=== PATIENT | female | born 1940 ===

== ENCOUNTER 2019-01-13 19:26 | Inpatient (IN) | payer OTHER ==
[~2019-01-13] VITALS: Ht 157.5 cm; Wt 61.2 kg
[~2019-01-13 19:26] MED LIST: ASPIRIN EC81 MG; EVISTA60 MG; MONOPRIL; NORVASC5 MG
[2019-01-13] MEDS ORDERED: DYAZIDE 37.5-21 EACH (19:42)
[2019-01-13] MEDS ORDERED: LIPITOR40 MG (19:43)
[2019-01-13] MEDS ORDERED: ATENOLOL100 MG (19:43)
[2019-01-13] MEDS ORDERED: CLARITIN10 M1 (19:43)
[2019-01-13] MEDS ORDERED: PROBIOTIC1 EAC2 (19:44)
[2019-01-15] MEDS ORDERED: FOSINOPRIL SODI40 MG (13:49)
[2019-01-21] MEDS ORDERED: CLOPIDOGREL BIS75 MG PO (10:18)
[2019-01-21] MEDS ORDERED: AMLODIPINE BESYL5 MG PO (10:18)
[2019-01-21] MEDS ORDERED: NAMENDA5 MG PO (10:19)
== END 2019-01-21 14:29 | disposition home or self-care (01) | DRG 682 ==
LOC: ER 19:26 → MEDJ 01-14 10:54 → SEC-K 01-14 10:54 → MEDJ 01-14 18:39 → SEC-K 01-14 19:54 → MEDJ 01-14 19:55
PROVIDERS: ADMIT Internal Medicine
PROC: BT4JZZZ Ultrasonography of Kidneys and Bladder (ICD-10-PCS; principal; 2019-01-14)
PROC: BH4CZZZ Ultrasonography of Head and Neck (ICD-10-PCS; 2019-01-17)
PROC: B345ZZZ Ultrasonography of Bilateral Common Carotid Arteries (ICD-10-PCS; 2019-01-18)
PROC: B348ZZZ Ultrasonography of Bilateral Internal Carotid Arteries (ICD-10-PCS; 2019-01-18)
PROC: B246ZZZ Ultrasonography of Right and Left Heart (ICD-10-PCS; 2019-01-18)
PROC: B030ZZZ Magnetic Resonance Imaging (MRI) of Brain (ICD-10-PCS; 2019-01-18)
PROC: 4A12X4Z Monitoring of Cardiac Electrical Activity, External Approach (ICD-10-PCS; 2019-01-18)
DX: N17.8 Other acute kidney failure (principal); I63.231 Cerebral infarction due to unspecified occlusion or stenosis of right carotid arteries; R65.10 Systemic inflammatory response syndrome (SIRS) of non-infectious origin without acute organ dysfunction; E87.1 Hypo-osmolality and hyponatremia; I12.9 Hypertensive chronic kidney disease with stage 1 through stage 4 chronic kidney disease, or unspecified chronic kidney disease; I69.311 Memory deficit following cerebral infarction; N18.3 Chronic kidney disease, stage 3 (moderate); E86.0 Dehydration; E87.8 Other disorders of electrolyte and fluid balance, not elsewhere classified; E04.1 Nontoxic single thyroid nodule; I08.2 Rheumatic disorders of both aortic and tricuspid valves; H40.89 Other specified glaucoma; D72.828 Other elevated white blood cell count; G93.0 Cerebral cysts; R29.702 NIHSS score 2
CPT/HCPCS: 70553

== ENCOUNTER 2019-05-15 07:04 | Outpatient (CLI) | payer OTHER ==
[~2019-05-15 07:04] MED LIST changes: +AMLODIPINE BESYL5 MG PO; +ATENOLOL100 MG; +CLARITIN10 M1; +CLOPIDOGREL BIS75 MG PO; +DYAZIDE 37.5-21 EACH; +FOSINOPRIL SODI40 MG; +LIPITOR40 MG; +NAMENDA5 MG PO; +PROBIOTIC1 EAC2
== END 2019-05-15 09:15 | disposition home or self-care (01) ==
LOC: SONOGRAMA 07:04
DX: E04.1 Nontoxic single thyroid nodule (principal)